=== PATIENT | male | born 1960 | race Caucasian/White ===

== ENCOUNTER 2016-10-16 21:19 | Emergency (ER) | payer OTHER ==
[~2016-10-16 21:19] MED LIST: BYSTOLIC; FLOXIN10 ML OT; LISINOPRIL; MOTRIN; PRILOSEC
== END 2016-10-16 23:13 | disposition home or self-care (01) ==
LOC: CFTX 21:19 → CED 21:19 → CFTX 22:55
DX: L02.415 Cutaneous abscess of right lower limb (principal); I10 Essential (primary) hypertension; K21.9 Gastro-esophageal reflux disease without esophagitis; Z23 Encounter for immunization; Z98.890 Other specified postprocedural states; Z88.8 Allergy status to other drugs, medicaments and biological substances
CPT/HCPCS: 10060; 87070; 87077; 87205; 90471; 90715; 99283

== ENCOUNTER 2016-10-19 17:52 | Emergency (ER) | payer OTHER | END 2016-10-19 20:50 | disposition home or self-care (01) | LOC: CED 17:52 | DX: L03.115 Cellulitis of right lower limb (principal); Z88.8 Allergy status to other drugs, medicaments and biological substances | CPT/HCPCS: 96372; 99283 ==